=== PATIENT | male | born 1990 | race Caucasian/White ===

== ENCOUNTER 2020-03-14 11:51 | Emergency (ER) | payer SELFPAY ==
[~2020-03-14] VITALS: Ht 165.1 cm; Wt 108.6 kg
[2020-03-14 12:00] VITALS: BP 150/94
[2020-03-14] MEDS ORDERED: TETRACAINE 0.5% OPHTH SOLN 4 ML BTL (SINGLE DOSE ONLY) ONE (12:04)
[2020-03-14] MEDS ORDERED: NS IV 1000 ML 1,000 ML ONE (12:08)
[2020-03-14] MEDS ORDERED: TETRACAINE 0.5% OPHTH SOLN 4 ML BTL (SINGLE DOSE ONLY) OP ONE (12:15)
[2020-03-14] MEDS ORDERED: NS IV 1000 ML 1,000 ML IV SCH (12:19)
--- NOTE | 2020-03-14 12:27 | ED EENT ---
History of Present Illness General Chief Complaint: Eye Problems Stated Complaint: RT EYE FOREIGN OBJECT Source: patient Exam Limitations: no limitations History of Present Illness Date Seen by Provider: Mar 14, 2020 Time Seen by Provider: 12:20 Initial Comments 29-year-old male presents with burning in his right eye. 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 Did not feel anything splashed him in the face, but he didn't have it on his hands and may have rubbed his eyes. No change of vision, he does wear contacts, denies any pain or burning in the left eye. Allergies and Home Medications Allergies Coded Allergies: No Known Allergies (Verified Allergy, Unknown, 03/14/20) Home Medications Erythromycin Base 1 Gm Oint...g., 0 OP Q4H 1/2 inch Prescribed by: LINNETTE CLINE on 03/14/20 1256 [pred forte] 1% , 2 DROP OD BID Prescribed by: LINNETTE CLINE on 03/14/20 1256 Patient Home Medication List Home Medication List Reviewed: Yes Review of Systems Review of Systems Constitutional: see HPI; No fever, No malaise, No weakness Eyes: See HPI, Inflammation, Pain; Denies Photophobia, Denies Vision Changes; Contact Lenses Ears: No Symptoms Reported Past Pltydgf-Kswfjy-Rnlyor Hx Past Med/Social Hx: Reviewed Nursing Past Med/Soc Hx Patient Social History Recent Foreign Travel: No Contact w/Someone Who Travel: No Visual Acuity : Vision Acuity Degree: 20/20 Physical Exam Vital Signs Vital Signs - First Documented 03/14/20 12:00 Temp 36.8 Pulse 104 Resp 20 B/P (MAP) 150/94 (112) Pulse Ox 97 O2 Delivery Room Air Height, Weight, BMI Height: '" Weight: lbs. oz. kg; BMI Method: General Appearance: WD/WN, no apparent distress Eyes: right eye conjunctival inflammation; bilateral eye PERRL, bilateral eye EOMI Procedures/Interventions Eye : Location: right eye Eye Debridement: Bladimir Lens Anesthesia (gtts): Tetracaine Progress/Procedure Conclusion no FB seen. Evaluated after 1 L NS per bladimir lens. Pt tolerated well. Flourescein stain without abrasion. Progress/Results/Core Measures Results/Orders My Orders Orders - LINNETTE CLINE DO Tetracaine 0.5% Ophth Sujatha Sdv (Tetracai (03/14/20 12:15) Tetracaine 0.5% Ophth Sujatha Sdv (Tetracai (03/14/20 12:04) Ns Iv 1000 Ml (Sodium Chloride 0.9%) (03/14/20 12:08) Ns Iv 1000 Ml (Sodium Chloride 0.9%) (03/14/20 12:19) Fluorescein Strips (Chbyk-U-Kewnas) (03/14/20 12:36) Fluorescein Strips (Ubxdi-H-Mtvzix) (03/14/20 12:45) Medications Given in ED Current Medications Medications Dose Ordered Sig/Galilea Route Start Time Stop Time Status Last Admin Dose Admin Fluorescein Sodium 1 mg ONCE ONCE OU 03/14/20 12:45 03/14/20 12:46 DC 03/14/20 12:40 1 MG Tetracaine HCl 1 OR 2 DROPS INTO AFFEC... ONCE ONCE OP 03/14/20 12:15 03/14/20 12:16 DC 03/14/20 12:09 4 ML Vital Signs/I&O 03/14/20 12:00 Temp 36.8 Pulse 104 Resp 20 B/P (MAP) 150/94 (112) Pulse Ox 97 O2 Delivery Room Air Departure Impression Primary Impression: Chemical conjunctivitis of right eye Disposition: HOME, SELF-CARE Condition: Improved Departure-Patient Inst. Referrals: NO,LOCAL PHYSICIAN (PCP/Family) Primary Care Physician Patient Instructions: Chemical Eye Injury (DC) Add. Discharge Instructions: You are advised to see a local [employer] [facility] tomorrow for re-evaluation of your right eye. All discharge instructions reviewed with patient and/or family. Voiced understanding. Scripts Erythromycin Base (Erythromycin Opthalmic Ointment) 1 Gm Oint...g. 0 OP Q4H for 3 Days, #1 TUBE 1/2 inch Prov: ROVENSTINE,LINNETTE L DO 03/14/20 [pred forte] 1% No Conflict Check 2 DROP OD BID for 5 Days, #1 VIAL Prov: ROVENSTINE,LINNETTE L DO 03/14/20 ROVENSTINE,LINNETTE L DO Mar 14, 2020 12:27
[2020-03-14] MEDS ORDERED: FLUORESCEIN (FLUOR-I-STRIPS) 1 MG STRP ONE (12:36)
[2020-03-14] MEDS ORDERED: FLUORESCEIN (FLUOR-I-STRIPS) 1 MG STRP OU ONE (12:45)
--- NOTE | 2020-03-14 12:52 | NUR ---
Pt verbalizes understanding of instructions reviewed. Pt states he wears contact lens and then denied having an eye Dr. Pt was asked how he gets his contact lens when he states he wears contaacts. Pt states his friend shares his contacts with him. Pt was counseled on the dangers of doing this and the potential for eye injury with this practice. Names of [facility] Dr's given for pt to contact. Pt was strongly encouraged to stop the habit of wearing someone else's contacts.
[2020-03-14] MEDS ORDERED: ERYT1OIN6 OP (12:56)
[2020-03-14] MEDS ORDERED: pred forte OD (12:56)
--- OUTSIDE RECORDS SUMMARY | 2020-03-14 13:18 | XMS REPORT | Continuity of Care Document ---
Author Author [facility] Organization [facility] [employer] Address Unknown Phone Unavailable Allergies There is no data. Medications There is no data. Problems There is no data. Procedures There is no data. Results Test Result Range SPECIMEN ID NOTIFICATION$MISSING SECOND ID - 02/12/20 17:33 COMMENT: NRG COVID-19 ([facility]) - 02/12/20 17:33 Encounters ACCT No. Visit Date/Time Discharge Status Pt. Type Provider Facility Loc./Unit Complaint [id number] 02/12/2020 17:10:00 02/12/2020 23:59: 59 [facility] Outpatient SHAAN CORRALES LAC [facility] [id number] 02/12/2020 17:10:00 Document Registration
== END 2020-03-14 12:52 | disposition home or self-care (01) ==
LOC: ER FS 11:53
DX: T65.891A Toxic effect of other specified substances, accidental (unintentional), initial encounter (principal); H10.211 Acute toxic conjunctivitis, right eye
CPT/HCPCS: 99283

== ENCOUNTER 2022-04-28 14:23 | Emergency (ER) | payer OTHER ==
[~2022-04-28 14:23] MED LIST: ERYT1OIN6 OP; pred forte OD
[2022-04-28] MEDS ORDERED: LIDOCAINE UROJET 2% GEL 10 ML PKG TOP ONE (14:30)
--- NOTE | 2022-04-28 14:48 | Diagnostic Imaging Report ---
INDICATION: Pelvic pain, possible rectal foreign body. COMPARISON: None. DISCUSSION: Two views of the abdomen and pelvis were obtained. Gas and stool noted within the colon. No abnormal small bowel loops. No obstruction or constipation. No pneumatosis or pneumoperitoneum. No osseous abnormality. No radiopaque foreign body identified. IMPRESSION: No foreign body identified. Dictated by: Dictated on workstation # [id number]
--- NOTE | 2022-04-28 14:57 | ED GU-Female ---
General Chief Complaint: - Reproductive Stated Complaint: URINARY RETENTION Source: patient Exam Limitations: no limitations History of Present Illness Date Seen by Provider: Apr 28, 2022 Time Seen by Provider: 14:30 Initial Comments Patient is a 32-year-old male inmate presents from correctional facility with urinary retention. Patient reports lower abdominal pain and inability to urinate since yesterday evening. No dysuria, did penile discharge or rectal pain. No history of urinary retention prostate enlargement, patient takes no medications on a daily basis. Timing/Duration: just prior to arrival, yesterday Severity/Quality: other Location: other Radiation: other Activities at Onset: other Sexual [place] History: other Modifying Factors: Improves With Other Associated Symptoms: other Allergies and Home Medications Allergies Coded Allergies: No Known Allergies (Verified Allergy, Unknown, 03/14/20) Patient Home Medication List Home Medication List Reviewed: Yes Erythromycin Base (Erythromycin Opthalmic Ointment) 1 Gm Oint...g., 0 OP Q4H Prescribed by: LINNETTE CLINE on 03/14/20 1256 [pred forte] 1% , 2 DROP OD BID Prescribed by: LINNETTE CLINE on 03/14/20 1256 Review of Systems Review of Systems Constitutional: see HPI EENTM: see HPI, no symptoms reported Respiratory: see HPI Cardiovascular: see HPI Gastrointestinal: see HPI Genitourinary: see HPI Musculoskeletal: see HPI Skin: see HPI Psychiatric/Neurological: See HPI Endocrine: See HPI Hematologic/Lymphatic: See HPI All Other Systemes Reviewed Negative Unless Noted: No Past Akvthmm-Dvatdu-Hdthdg Hx Patient Social History Tobacco Use?: Yes Immunizations Up To Date Tetanus Booster (TDap): More than 5yrs Seasonal Allergies Seasonal Allergies: No Past Medical History Surgeries: Yes (Jaw surgery (wired)) Respiratory: No Cardiac: No Neurological: No Genitourinary: No Gastrointestinal: No Musculoskeletal: No Endocrine: No HEENT: No Cancer: No Psychosocial: No Blood Disorders: No Physical Exam Vital Signs Vital Signs - First Documented 04/28/22 14:26 Temp 36.3 Pulse 75 Resp 18 B/P (MAP) 135/78 (97) Pulse Ox 99 O2 Delivery Room Air Capillary Refill : Height, Weight, BMI Height: '" Weight: lbs. oz. kg; 39.00 BMI Method: General Appearance: WD/WN, no apparent distress HEENT: PERRL/EOMI, normal ENT inspection Neck: non-tender, supple Cardiovascular: regular rate, rhythm Gastrointestinal: soft, tenderness (RLQ newsome/ttp) Back: no CVA tenderness Extremities: non-tender Neurologic/Psychiatric: alert, normal mood/affect, oriented x 3 Skin: warm/dry Focused Exam Sepsis Stage: Ruled Out Progress/Results/Core Measures Suspected Sepsis SIRS Temperature: Pulse: Respiratory Rate: Laboratory Tests 04/28/22 15:20: White Blood Count 8.3 Blood Pressure / Mean: Laboratory Tests 04/28/22 15:20: Creatinine 1.02, Platelet Count 293, Total Bilirubin 0.9 Results/Orders Lab Results Laboratory Tests Test 04/28/22 15:20 04/28/22 16:45 Range/Units White Blood Count 8.3 4.3-11.0 10^3/uL Red Blood Count 4.37 4.30-5.52 10^6/uL Hemoglobin 13.2 L 13.3-17.7 g/dL Hematocrit 39 L 40-54 % Mean Corpuscular Volume 89 80-99 fL Mean Corpuscular Hemoglobin 30 25-34 pg Mean Corpuscular Hemoglobin Concent 34 32-36 g/dL Red Cell Distribution Width 13.0 10.0-14.5 % Platelet Count 293 130-400 10^3/uL Mean Platelet Volume 9.9 9.0-12.2 fL Immature Granulocyte % (Auto) 1 % Neutrophils (%) (Auto) 68 42-75 % Lymphocytes (%) (Auto) 23 12-44 % Monocytes (%) (Auto) 5 0-12 % Eosinophils (%) (Auto) 3 0-10 % Basophils (%) (Auto) 1 0-10 % Neutrophils # (Auto) 5.7 1.8-7.8 10^3/uL Lymphocytes # (Auto) 1.9 1.0-4.0 10^3/uL Monocytes # (Auto) 0.4 0.0-1.0 10^3/uL Eosinophils # (Auto) 0.2 0.0-0.3 10^3/uL Basophils # (Auto) 0.1 0.0-0.1 10^3/uL Immature Granulocyte # (Auto) 0.1 0.0-0.1 10^3/uL Sodium Level 141 135-145 MMOL/L Potassium Level 4.1 3.6-5.0 MMOL/L Chloride Level 103 98-107 MMOL/L Carbon Dioxide Level 29 21-32 MMOL/L Anion Gap 9 5-14 MMOL/L Blood Urea Nitrogen 9 7-18 MG/DL Creatinine 1.02 0.60-1.30 MG/DL Estimat Glomerular Filtration Rate 100 BUN/Creatinine Ratio 9 Glucose Level 106 H 70-105 MG/DL Calcium Level 9.2 8.5-10.1 MG/DL Corrected Calcium 9.1 8.5-10.1 MG/DL Total Bilirubin 0.9 0.1-1.0 MG/DL Aspartate Amino Transf (AST/SGOT) 16 5-34 U/L Alanine Aminotransferase (ALT/SGPT) 20 0-55 U/L Alkaline Phosphatase 94 40-136 U/L Total Protein 6.7 6.4-8.2 GM/DL Albumin 4.1 3.2-4.5 GM/DL Urine Color YELLOW Urine Clarity CLEAR Urine pH 7.0 5-9 Urine Specific [place] 1.020 1.016-1.022 Urine Protein NEGATIVE NEGATIVE Urine Glucose (UA) NEGATIVE NEGATIVE Urine Ketones NEGATIVE NEGATIVE Urine Nitrite NEGATIVE NEGATIVE Urine Bilirubin NEGATIVE NEGATIVE Urine Urobilinogen 1.0 < = 1.0 MG/DL Urine Leukocyte Esterase NEGATIVE NEGATIVE Urine RBC (Auto) NEGATIVE NEGATIVE Urine RBC NONE /HPF Urine WBC 0-2 /HPF Urine Squamous Epithelial Cells NONE /HPF Urine Crystals PRESENT H /LPF Urine Amorphous Sediment LARGE SERA PHOSPHATE H /LPF Urine Bacteria FEW H /HPF Urine Casts NONE /LPF Urine Mucus LARGE H /LPF Urine Culture Indicated YES Urine Opiates Screen POSITIVE H NEGATIVE Urine Oxycodone Screen NEGATIVE NEGATIVE Urine Methadone Screen NEGATIVE NEGATIVE Urine Propoxyphene Screen NEGATIVE NEGATIVE Urine Barbiturates Screen NEGATIVE NEGATIVE Ur Tricyclic Antidepressants Screen NEGATIVE NEGATIVE Urine Phencyclidine Screen NEGATIVE NEGATIVE Urine Amphetamines Screen POSITIVE H NEGATIVE Urine Methamphetamines Screen POSITIVE H NEGATIVE Urine Benzodiazepines Screen NEGATIVE NEGATIVE Urine Cocaine Screen NEGATIVE NEGATIVE Urine Cannabinoids Screen NEGATIVE NEGATIVE My Orders Orders - LOGAN CRUZ DO Abdomen (Kub) 1 View (04/28/22 14:30) Catheter(Urinary) Insert & Ass 03,15 (04/28/22 14:30) Lidocaine 2% (Urojet) (Xylocaine Urojet) (04/28/22 14:30) Ua Culture If Indicated (04/28/22 14:30) Cbc With Automated Diff (04/28/22 15:11) Comprehensive Metabolic Panel (04/28/22 15:11) Ct Pelvis W (04/28/22 15:11) Morphine Injection (Morphine Injection (04/28/22 15:24) Ondansetron Injection (Zofran Injectio (04/28/22 15:30) Fentanyl Inj (Sublimaze Injection) (04/28/22 16:00) Lidocaine 1% Inj 50 Ml (Xylocaine 1% Inj (04/28/22 16:15) Urine Culture (04/28/22 16:45) Drug Screen Stat (Urine) (04/28/22 18:17) Medications Given in ED Current Medications Medications Dose Ordered Sig/Galilea Route Start Time Stop Time Status Last Admin Dose Admin Fentanyl Citrate 50 mcg ONCE ONCE IVP 04/28/22 16:00 04/28/22 16:01 DC 04/28/22 16:07 50 MCG Iohexol 100 ml ONCE ONCE IV 04/28/22 15:30 04/28/22 15:31 DC 04/28/22 15:37 100 ML Lidocaine HCl 10 ml ONCE ONCE TOP 04/28/22 14:30 04/28/22 14:35 DC 04/28/22 14:54 10 ML Lidocaine HCl 50 ml STK-MED ONCE .ROUTE 04/28/22 16:15 04/28/22 16:19 DC 04/28/22 16:44 50 ML Ondansetron HCl 4 mg ONCE ONCE IVP 04/28/22 15:30 04/28/22 15:31 DC 04/28/22 15:37 4 MG Sodium Chloride 10 ml NEEDED PRN IV 04/28/22 15:30 04/28/22 15:37 10 ML Sodium Chloride 100 ml ONCE ONCE IV 04/28/22 15:30 04/28/22 15:31 DC 04/28/22 15:37 100 ML Vital Signs/I&O 04/28/22 14:26 Temp 36.3 Pulse 75 Resp 18 B/P (MAP) 135/78 (97) Pulse Ox 99 O2 Delivery Room Air Capillary Refill : Departure Communication (Admissions) CT abdomen pelvis: Bladder distention without large prostate or obvious source of obstruction. Multiple attempts to place [place] catheter to relieve bladder obstruction were unsuccessful by nurse. Patient continued to have severe pain with diaphoresis despite pain medication. Suprapubic tap was performed with bladder irrigation of approximately 700 cc of sterile urine. The patient tolerated the procedure well and experienced relief of symptoms. There is no local urologist available to care for the patient. Patient accepted to emergency department per Dr. Christelle Gautam. Procedure note: Procedure type: Suprapubic tap with bladder aspiration/decompression Indication: Acute urinary outlet obstruction with bladder distention and intractable pain Consent: Risks versus benefit versus alternatives were discussed in detail with patient who verbalized understanding and requested procedure. Written consent obtained. Performing physician: Dr. Logan Cruz Anesthesia used: 5 mL of 1% lidocaine without epinephrine Complications: None Patient is pelvis was sterilely prepped, an ultrasound was used to locate the distended urinary bladder and approximately 5 mL of fluid was made in 2 separate locations covering following which a 5-gauge needle was successfully inserted into the bladder, and large bore Angiocath was placed via the reverse Seldinger technique. The catheter was then attached to the tubing and the bilateral Jimmy was decompressed with 60 mL syringe and approximately 6 to 700 mL of you sterile urine was evacuated. The angiocatheter was then removed. The patient received relief of symptoms and no urinary leak was appreciated following the procedure. Patient tolerated procedure well without complication Impression Primary Impression: Urinary tract infection Disposition: XF S[facility]-TRM HOSP Condition: Stable Transfer Transfer Reason: Exceeds level of care Time Spoke to Accepting Phy: 18:00 Departure-Patient Inst. Decision time for Depature: 19:03 Referrals: NO,LOCAL PHYSICIAN (PCP/Family) Primary Care Physician LOGAN CRUZ DO Apr 28, 2022 14:57
[2022-04-28] MEDS ORDERED: morphine INJ 10 MG/ML 1ML (SYR OR VIAL) IVP STA (15:24)
[2022-04-28 15:26] LABS: BASOPHILS # (AUTO) 0.1 10^3/uL (0.0-0.1); BASOPHILS % (AUTO) 1 % (0-10); EOSINOPHILS # (AUTO) 0.2 10^3/uL (0.0-0.3); EOSINOPHILS % (AUTO) 3 % (0-10); HEMATOCRIT 39 % (40-54); HEMOGLOBIN 13.2 g/dL (13.3-17.7); LYMPHOCYTES # (AUTO) 1.9 10^3/uL (1.0-4.0); LYMPHOCYTES % (AUTO) 23 % (12-44); MEAN CORPUSCULAR HEMOGLOBIN 30 pg (25-34); MEAN CORPUSCULAR HGB CONC 34 g/dL (32-36); MEAN CORPUSCULAR VOLUME 89 fL (80-99); MEAN PLATELET VOLUME 9.9 fL (9.0-12.2); MONOCYTES # (AUTO) 0.4 10^3/uL (0.0-1.0); MONOCYTES % (AUTO) 5 % (0-12); NEUTROPHILS # (AUTO) 5.7 10^3/uL (1.8-7.8); NEUTROPHILS % (AUTO) 68 % (42-75); PLATELET COUNT 293 10^3/uL (130-400); WHITE BLOOD COUNT 8.3 10^3/uL (4.3-11.0)
[2022-04-28] MEDS ORDERED: NS 100 ML (IVPB) BAG IV ONE (15:30)
[2022-04-28] MEDS ORDERED: ONDANSETRON 4 MG/2 ML (SDV) Z0FRAN IVP ONE (15:30)
[2022-04-28] MEDS ORDERED: CATHETER FLUSH 10 ML SYR IV PRN (15:30)
[2022-04-28] MEDS ORDERED: IOHEXOL 350 MG/ML 100 ML (OMNIPAQUE 350) VIAL IV ONE (15:30)
[2022-04-28] MEDS ORDERED: HOLD METFORMIN - RECEIVED CONTRAST 20 ML VIAL IV SCH (15:30)
--- NOTE | 2022-04-28 15:46 | Diagnostic Imaging Report ---
PROCEDURE: CT pelvis with contrast. TECHNIQUE: Oral and intravenous contrast were administered with pelvic CT performed. Auto Exposure Controls were utilized during the CT exam to meet ALARA standards for radiation dose reduction. INDICATION: Abdominal pain, bladder obstruction. COMPARISON: None. DISCUSSION: The bladder is markedly distended. Prostate is normal in size. There is no obvious mass within the bladder. No inguinal hernia. The large and small bowel loops appear normal, as visualized. Vascular structures are within normal limits. No ascites or adenopathy. No acute osseous abnormality identified. Chronic nondisplaced bilateral L5 pars defect noted. IMPRESSION: Distention of the urinary bladder. No mass identified. Prostate is normal in size. Dictated by: Dictated on workstation # [id number]
[2022-04-28 15:50] LABS: CALCIUM 9.2 MG/DL (8.5-10.1); CREATININE SERUM 1.02 MG/DL (0.60-1.30); POTASSIUM 4.1 MMOL/L (3.6-5.0)
[2022-04-28 15:51] LABS: ALBUMIN 4.1 GM/DL (3.2-4.5); BILIRUBIN,TOTAL 0.9 MG/DL (0.1-1.0); TOTAL PROTEIN 6.7 GM/DL (6.4-8.2)
[2022-04-28] MEDS ORDERED: fentaNYL INJ 100 MCG/2 ML AMP IVP ONE (16:00)
[2022-04-28] MEDS ORDERED: LIDOCAINE 1% INJ 50 ML (XYLOCAINE) VIAL ONE (16:15)
[2022-04-28 16:51] LABS: BILIRUBIN,URINE NEGATIVE (NEGATIVE); CLARITY,URINE CLEAR; COLOR,URINE YELLOW; GLUCOSE, URINE (UA) NEGATIVE (NEGATIVE); KETONES,URINE NEGATIVE (NEGATIVE); LEUKOCYTE ESTERASE ,URINE NEGATIVE (NEGATIVE); NITRITE,URINE NEGATIVE (NEGATIVE); PROTEIN,URINE NEGATIVE (NEGATIVE)
[2022-04-28 16:54] LABS: BACTERIA,URINE FEW /HPF; WBC,URINE 0-2 /HPF
[2022-04-28 16:55] LABS: AMORPHOUS SEDIMENT,UR LARGE AMOR PHOSPHATE /LPF
[2022-04-28 18:37] LABS: AMPHETAMINE SCREEN, URINE POSITIVE (NEGATIVE); BARBITURATE SCREEN URINE NEGATIVE (NEGATIVE); BENZODIAZEPINES SCREEN URINE NEGATIVE (NEGATIVE); CANNABINOID SCREEN, URINE NEGATIVE (NEGATIVE); COCAINE SCREEN URINE NEGATIVE (NEGATIVE); METHADONE STAT NEGATIVE (NEGATIVE); OPIATE SCREEN URINE POSITIVE (NEGATIVE); OXYCODONE STAT NEGATIVE (NEGATIVE); PROPOXYPHENE STAT NEGATIVE (NEGATIVE); TRICYCLIC ANTIDEPRESSANTS SCRE NEGATIVE (NEGATIVE)
[2022-04-28 19:40] VITALS: BP 131/70
== END 2022-04-28 19:40 | disposition short-term general hospital (02) ==
LOC: EDUNIT# 14:23 → ER FS 14:25
DX: N39.0 Urinary tract infection, site not specified (principal); Z72.0 Tobacco use; Z28.310 Unvaccinated for COVID-19
CPT/HCPCS: 36415; 72193; 74018; 80053; 80306; 81000; 85025; 87088; Q9967